=== PATIENT | male | born 1940 | race Caucasian/White ===

== ENCOUNTER 2017-09-13 06:47 | Day surgery (SDC) | payer MEDICARE, BC ==
[~2017-09-13] VITALS: Ht 177.8 cm; Wt 120.8 kg
[~2017-09-13 06:47] MED LIST: AMLO5 PO; ASPI81CH PO; Allopurinol100 MG PO; Bystolic20 MG PO; CELE200 PO; CLON.2 PO; COLCRYS0.6 MG PO; EDARBYCLOR 40-1 EAC1 PO; Nitrostat0.4 MG; POTA10T PO; Prozac20 MG PO; Simvastatin20 MG PO; TORSE20 PO
[2017-12-26] MEDS ORDERED: ACET500 PO (11:03)
[2017-12-26] MEDS ORDERED: VITAMIN B122500 MC1 PO (11:16)
[2017-12-26] MEDS ORDERED: TORSE20 PO (11:39)
[2017-12-26] MEDS ORDERED: Klor-Con 1010 MEQ PO (11:39)
[2017-12-26] MEDS ORDERED: Prozac40 MG PO (11:40)
[2017-12-26] MEDS ORDERED: TAMS.4ER PO (11:40)
[2017-12-26] MEDS ORDERED: ASPI81CH PO (11:41)
[2017-12-26] MEDS ORDERED: FLAX PO (11:41)
[2017-12-26] MEDS ORDERED: FISH OIL 1,2001 EAC1 PO (11:41)
[2017-12-26] MEDS ORDERED: NEBI10 PO (11:41)
[2017-12-26] MEDS ORDERED: EDARBYCLOR 40-1 EAC1 PO (11:42)
[2017-12-26] MEDS ORDERED: Hair, Skin & N1 EACH PO (11:43)
[2017-12-26] MEDS ORDERED: CALCA400CH PO (11:43)
[2017-12-26] MEDS ORDERED: COLCRYS0.6 MG PO ×2 (11:44)
[2017-12-26] MEDS ORDERED: SIMV5 PO (11:44)
[2017-12-26] MEDS ORDERED: AMLO5 PO (11:44)
[2017-12-26] MEDS ORDERED: Nitrostat0.4 MG SL (11:45)
[2017-12-26] MEDS ORDERED: CELE200 PO (11:45)
[2017-12-26] MEDS ORDERED: ALLO100 PO (11:46)
[2017-12-26] MEDS ORDERED: CLON.2 PO (11:46)
== END 2017-09-13 10:24 | disposition home or self-care (01) ==
LOC: ORSCSDS 06:47
PROVIDERS: Urology
PROC: 0V508ZZ Destruction of Prostate, Via Natural or Artificial Opening Endoscopic (ICD-10-PCS; principal; 2017-09-13 08:30)
DX: N40.1 Benign prostatic hyperplasia with lower urinary tract symptoms (principal); E11.9 Type 2 diabetes mellitus without complications; I10 Essential (primary) hypertension; E78.5 Hyperlipidemia, unspecified; G47.33 Obstructive sleep apnea (adult) (pediatric); I25.10 Atherosclerotic heart disease of native coronary artery without angina pectoris; Z95.1 Presence of aortocoronary bypass graft; E66.01 Morbid (severe) obesity due to excess calories; Z68.38 Body mass index [BMI] 38.0-38.9, adult; Z87.891 Personal history of nicotine dependence; Z79.899 Other long term (current) drug therapy
CPT/HCPCS: 82947; J0744; J1100; J2250; J2405; J3010; J7120

== ENCOUNTER 2018-01-16 07:32 | Inpatient (IN) | payer MEDICARE, BC ==
[~2018-01-16] VITALS: Ht 180.3 cm; Wt 122.9 kg
[~2018-01-16 07:32] MED LIST changes: +ACET500 PO; +ALLO100 PO; +CALCA400CH PO; +FISH OIL 1,2001 EAC1 PO; +FLAX PO; +Hair, Skin & N1 EACH PO; +Klor-Con 1010 MEQ PO; +NEBI10 PO; +Nitrostat0.4 MG SL; +Prozac40 MG PO; +SIMV5 PO; +TAMS.4ER PO; +VITAMIN B122500 MC1 PO
[2018-01-17 04:07] LABS: BASOPHILS ABSOLUTE AUTO 0.01 K/mm3 (0.00-0.23); BASOPHILS PERCENT AUTO 0 % (0-2); EOSINOPHILS PERCENT AUTO 0 % (0-6); Hemoglobin 10.5 g/dL (13.5-17.5); IMMATURE GRAN ABSOLUTE AUTO 0.06 K/mm3 (0.00-0.10); IMMATURE GRAN PERCENT AUTO 0 % (0-1); LYMPHOCYTES ABSOLUTE AUTO 1.77 K/mm3 (0.84-5.20); LYMPHOCYTES PERCENT AUTO 12 % (21-46); MONOCYTES PERCENT AUTO 7 % (4-13); Mean Corpuscular HGB 31.9 pg (26.0-34.0); Mean Corpuscular HGB Conc 33.9 g/dL (31.5-36.5); Mean Corpuscular Volume 94 fL (80-100); Mean Platelet Volume 9.8 fL (9.1-12.4); NEUTROPHILS ABSOLUTE AUTO 11.38 K/mm3 (1.96-9.15); NEUTROPHILS PERCENT AUTO 80 % (41-73); Platelet Count 194 K/mm3 (150-400); RDW Coefficient Variation 13.7 % (11.7-14.2); RDW Standard Deviation 47.5 fL (35.1-46.3); Red Blood Cell Count 3.29 M/mm3 (4.30-5.90); White Blood Cell Count 14.22 K/mm3 (4.00-11.30)
[2018-01-17 04:29] LABS: Magnesium, Blood 1.9 mg/dL (1.6-2.4)
[2018-01-17 04:30] LABS: Anion Gap 8 mmol/L (6-16); Blood Urea Nitrogen 29 mg/dL (8-24); Bun/Creatinine Ratio 29.6 (12.0-20.0); CO2, Blood 25 mmol/L (21-32); Calcium, Blood 8.3 mg/dL (8.5-10.1); Chloride, Blood 107 mmol/L (98-108); Creatinine, Blood 0.98 mg/dL (0.60-1.20); Glomerular Filtration Rate >60 (60-); Glucose, Blood 142 mg/dL (70-99); Potassium, Blood 3.6 mmol/L (3.5-5.5); Sodium, Blood 140 mmol/L (136-145)
[2018-01-17] MEDS ORDERED: Percocet 5-3251 EACH PO (11:44)
== END 2018-01-17 12:20 | disposition home or self-care (01) | DRG 483 ==
LOC: ORSCMMR 07:32 → SURS 09:46 → ORSCMMR 09:46 → SURS 01-17 12:20
PROVIDERS: Orthopaedic Surgery
PROC: 0RRJ0J6 Replacement of Right Shoulder Joint with Synthetic Substitute, Humeral Surface, Open Approach (ICD-10-PCS; principal; 2018-01-16 10:00)
DX: M19.011 Primary osteoarthritis, right shoulder (principal); I25.10 Atherosclerotic heart disease of native coronary artery without angina pectoris; E78.5 Hyperlipidemia, unspecified; E11.9 Type 2 diabetes mellitus without complications; F32.9 Major depressive disorder, single episode, unspecified; I77.819 Aortic ectasia, unspecified site; G47.33 Obstructive sleep apnea (adult) (pediatric); I10 Essential (primary) hypertension; E66.9 Obesity, unspecified; Z68.37 Body mass index [BMI] 37.0-37.9, adult; Z79.82 Long term (current) use of aspirin; Z79.899 Other long term (current) drug therapy; Z95.1 Presence of aortocoronary bypass graft; Z87.891 Personal history of nicotine dependence
CPT/HCPCS: 36415; 73030; 80048; 82947; 83735; 85025; 86850; 86900; 86901; 88300; 94762; 97110; 97116; 97161; 97166; 97535; C1776; G8978; G8979; G8980; G8987; G8988; G8989; J0171; J0690; J0735; J1100; J1885; J2370; J2405; J2795; J3370; J7030; J7120

== ENCOUNTER 2023-01-13 10:38 | Inpatient (IN) | payer MEDICARE, BC ==
[2023-01-13] VITALS (19 sets, daily range): BP systolic 96–167; BP diastolic 51–98
[~2023-01-13] VITALS: Ht 180.3 cm; Wt 122.5 kg
[~2023-01-13 10:38] MED LIST changes: +Percocet 5-3251 EACH PO
[2023-01-13 11:36] LABS: BASOPHILS ABSOLUTE AUTO 0.02 K/mm3 (0.00-0.23); BASOPHILS PERCENT AUTO 0 % (0-2); EOSINOPHILS ABSOLUTE AUTO 0.06 K/mm3 (0.00-0.68); EOSINOPHILS PERCENT AUTO 1 % (0-6); Hematocrit 19.9 % (37.0-53.0); IMMATURE GRAN ABSOLUTE AUTO 0.03 K/mm3 (0.00-0.10); IMMATURE GRAN PERCENT AUTO 0 % (0-1); LYMPHOCYTES ABSOLUTE AUTO 1.16 K/mm3 (0.84-5.20); LYMPHOCYTES PERCENT AUTO 16 % (21-46); MONOCYTES ABSOLUTE AUTO 1.01 K/mm3 (0.16-1.47); MONOCYTES PERCENT AUTO 14 % (4-13); Mean Corpuscular HGB 23.8 pg (26.0-34.0); Mean Corpuscular HGB Conc 28.6 g/dL (31.5-36.5); Mean Corpuscular Volume 83 fL (80-100); Mean Platelet Volume 10.8 fL (9.1-12.4); NEUTROPHILS ABSOLUTE AUTO 5.08 K/mm3 (1.96-9.15); NEUTROPHILS PERCENT AUTO 69 % (41-73); NRBC ABSOLUTE 0.02 K/mm3 (0.00-0.02); NRBC Auto 0.3 /100 WBC (0.0-0.2); Platelet Count 176 K/mm3 (150-400); White Blood Cell Count 7.36 K/mm3 (4.00-11.30)
[2023-01-13 11:50] LABS: Albumin, Blood 3.3 g/dL (3.4-5.0); Albumin/Globulin Ratio 1.1 (0.8-1.8); Bilirubin, Total 0.9 mg/dL (0.1-1.0); Bun/Creatinine Ratio 20.7 (12.0-20.0); Creatinine, Blood 1.11 mg/dL (0.60-1.20); Potassium, Blood 2.9 mmol/L (3.5-5.5); Total Protein, Blood 6.3 g/dL (6.4-8.2)
[2023-01-13 12:26] LABS: Hemoglobin 5.7 g/dL (13.5-17.5)
[2023-01-13 13:03] LABS: Source, Urine Foley catheter
[2023-01-13 13:07] LABS: Bilirubin, Urine Neg (Neg); Blood, Urine Neg (Neg); Glucose Qualitative, Urine Neg (Neg); Ketones, Urine Neg (Neg); Leukocyte Esterase, Urine Neg (Neg); Nitrite, Urine Neg (Neg); Protein, Urine Neg (Neg); Specific Gravity, Urine 1.005 (1.003-1.022); Urobilinogen, Urine NORM (Normal)
[2023-01-13 13:19] LABS: Appearance, Urine Clear (Clear); Color, Urine Pale Yellow (P-Yellow)
[2023-01-13] MEDS ORDERED: METF500 PO (13:23)
[2023-01-13] MEDS ORDERED: ELIQUIS5 M2 PO (13:23)
[2023-01-13] MEDS ORDERED: SPIR25 PO (13:24)
[2023-01-13] MEDS ORDERED: ESCI20 PO (13:25)
[2023-01-13] MEDS ORDERED: ALLO100 PO (13:25)
[2023-01-13] MEDS ORDERED: NEBI10 PO (13:25)
[2023-01-13] MEDS ORDERED: TORSE20 PO (13:25)
[2023-01-13] MEDS ORDERED: EDARBI40 MG PO (13:25)
[2023-01-13] MEDS ORDERED: ZOCOR20 MG PO (13:26)
[2023-01-13] MEDS ORDERED: ASPI81CH PO (13:26)
[2023-01-13] MEDS ORDERED: AMLO5 PO (13:26)
[2023-01-13 13:36] LABS: International Normalized Ratio 1.24; Prothrombin Time Results 12.9 Sec (9.7-11.5)
--- NOTE | 2023-01-13 15:30 | NUR ---
Received report from ER and patient came by jesus on monitor and infusing Blood product, Potassium, Magnesium. He has 22ga IV and 20ga IV in right hand. he is on Ra and sats >90% on RA. will bring CPAP in tomorrow and notified RT to bring CPAP and the set up in room . 16 Fr Robles draining clear urine. He is alert and oriented and is able to communicate all his needs. He was able to stand and self transfer to PCU 8 bed. Patient is in A-Fib in the 60's. is at bedside and was able to give Dr Ramirez info at bedside for H&P as well.
[2023-01-13 15:46] LABS: Percent Saturation 3.9 % (20.0-50.0)
--- NOTE | 2023-01-13 18:46 | NUR ---
Patient is alert and oriented and is able to communicate his needs , called and talked to him for the evening check in. H eis very pleasant with care. He is on RA and sats >90%. 2 PRBC infusing, and Potassium is done. Admit finished. He has 16Fr Robles draining to gravity and has drained a total of 3800 ml clear yellow urine. We are starting on clear liquid no reds.
[2023-01-13 21:24] LABS: Hematocrit 23.2 % (37.0-53.0); Hemoglobin 7.1 g/dL (13.5-17.5)
[2023-01-14 04:36] VITALS: BP 136/69
[2023-01-14 05:46] LABS: Hematocrit 23.2 % (37.0-53.0); Mean Corpuscular HGB 24.4 pg (26.0-34.0); Mean Corpuscular HGB Conc 30.2 g/dL (31.5-36.5); Mean Corpuscular Volume 81 fL (80-100); Mean Platelet Volume 10.6 fL (9.1-12.4); Platelet Count 159 K/mm3 (150-400); RDW Coefficient Variation 17.5 % (11.7-14.2); RDW Standard Deviation 51.8 fL (35.1-46.3); Red Blood Cell Count 2.87 M/mm3 (4.30-5.90)
--- NOTE | 2023-01-14 05:53 | NUR ---
END OF SHIFT PT CONFUSED OVERNIGHT REQUIRING THE BED ALARM FOR SAFETY, PULLING AT F/C AT TIMES, OTHERWISE VSS, GOOD UO, NO BM SO STILL NEEDING A SPECIMEN FOR OCCULT STOOL ORDER, HGB POST 2 UNITS PRBC'S WAS 7.1, LABS PENDING THIS AM
[2023-01-14 05:55] LABS: Bun/Creatinine Ratio 18.4 (12.0-20.0); Creatinine, Blood 1.03 mg/dL (0.60-1.20)
[2023-01-14 06:51] VITALS: BP 147/80
--- NOTE | 2023-01-14 07:23 | NUR ---
Recieved report from Noc shift RN. Patient is awakened easily with verbal stimuli. He is appropriate and is able to communbicate his needs. He has 2 IV's to right hand and PICC line to RAMONA. Plan for GI consult today. He has 16 Fr pablo draining to gravity clear yellow urine. He is on RA and sats >90%. He uses CPAP at night to sleep and will bring his in today. MAEW and is independent with positioning. VSS
--- NOTE | 2023-01-14 11:30 | NUR ---
Patient awake in bed watching TV. He trolerated am meds with water. He is anxiously awaiting GI cunsult. Started [address] well[address] Kim was in with patient, no new orders. Patient continues to have copius amount of clear urine (2 Liters). will be coming in at noon his personal CPAP. He remains on RA and sats >90%. ECHO just finished.
--- NOTE | 2023-01-14 11:36 | NUR ---
Patient is awake and caregiver in room , Dr Live and resident is room with them. We changed to full face mask for BIPAP and patient likes better. He tolerated some food this am and orange juice and well as po meds. He is currently on NC 5L O2 and sats 97%. Oral care done pre and post eating. His speech slightly better to understand. Eduar palmer'd
[2023-01-14 12:19] VITALS: BP 138/69
[2023-01-14 15:00] VITALS: BP 118/68
--- NOTE | 2023-01-14 17:25 | NUR ---
Patient has been doing well and resting off and on. He is anxious about GI consult, but arrived about 1600. Spouse at bedside. Dr Kelly by and did rectal exam and spoke with patient and spouse and made reccomendations to Hosp.. Patient is impulsive at times and redirects quickly. He is independent in bed and SBA when up for safety. He finished 3rd PRBC and tolerated well. Heemains on RA and sats >90%. Called Dr Kim for new diet and meds.
[2023-01-14 20:28] VITALS: BP 111/74
--- NOTE | 2023-01-15 05:28 | NUR ---
END OF SHIFT ATTEMPTS AT BLADDER TRAINING UNSUCCESSFUL OVERNIGHT D/T PT CONFUSION, F/C CLAMPED FOR 1 HOUR AND LEAKING AROUND CATHETER, PT UP OUT OF BED DRAGGING CATHETER ON FLOOR, LINENS CHANGED AND CATHETER LEFT IN PLACE UNTIL AM, OTHERWISE NO ISSUES OR CHANGES FROM PREVIOUS STATUS, LABS PENDING THIS AM
[2023-01-15 06:05] LABS: Hematocrit 25.4 % (37.0-53.0); Hemoglobin 7.8 g/dL (13.5-17.5); Mean Corpuscular HGB 24.7 pg (26.0-34.0); Mean Corpuscular HGB Conc 30.7 g/dL (31.5-36.5); Mean Corpuscular Volume 80 fL (80-100); Mean Platelet Volume 10.7 fL (9.1-12.4); Platelet Count 155 K/mm3 (150-400); RDW Coefficient Variation 17.5 % (11.7-14.2); RDW Standard Deviation 51.7 fL (35.1-46.3); Red Blood Cell Count 3.16 M/mm3 (4.30-5.90)
[2023-01-15 06:26] LABS: Albumin, Blood 3.1 g/dL (3.4-5.0); Anion Gap 5 mmol/L (6-16); Blood Urea Nitrogen 13 mg/dL (8-24); Bun/Creatinine Ratio 13.6 (12.0-20.0); CO2, Blood 28 mmol/L (21-32); Calcium, Blood 8.2 mg/dL (8.5-10.1); Chloride, Blood 111 mmol/L (98-108); Creatinine, Blood 0.96 mg/dL (0.60-1.20); Glomerular Filtration Rate 78 (60-); Glucose, Blood 111 mg/dL (70-99); Phosphorus, Blood 3.2 mg/dL (2.5-4.9); Potassium, Blood 2.6 mmol/L (3.5-5.5); Sodium, Blood 144 mmol/L (136-145)
[2023-01-15 08:00] VITALS: BP 146/51
[2023-01-15 09:18] LABS: Stool Occult Bld Immuno 1 Positive (NEGATIVE)
[2023-01-15 09:20] VITALS: BP 118/61
[2023-01-15 12:36] VITALS: BP 113/58
[2023-01-15] MEDS ORDERED: FERSU300 PO (14:55)
[2023-01-15] MEDS ORDERED: MIRALAX17 GM PO (14:59)
[2023-01-15] MEDS ORDERED: POTA10T PO (14:59)
[2023-01-15] MEDS ORDERED: LOSARTAN POTAS100 M1 PO (15:00)
[2023-01-15 16:00] VITALS: BP 103/48
--- NOTE | 2023-01-15 16:33 | NUR ---
SHIFT SUMMARY THIS RN ASSUMED CARE OF PT AT 0715, REPORT FROM NETTE BACH. PT AWAKE IN ROOM, WATCHING TV. PT A&O X 3-4. PT RESPONDING TO QUESTIONS APPROPRIATELY; PT HARD OF HEARING BUT OTHER THAN THAT HE IS INTERACTING AND RESPONDING APPROPRIATELY. VSS THROUGHOUT SHIFT. PT'S KELLER CATHETER DC'D THIS AM; THIS RN REMOVED KELLER AND SINCE THEN PT HAS BEEN USING URINAL AT BEDSIDE W/ASSISTANCE. PT HAS SOME EPISODES OF INCONTINENCE; ATTENDS IN PLACE AND CHANGED NEEDED. NO BM THIS SHIFT, HOWEVER PT DENIES BLOOD IN STOOL, DENIES DARK STOOLS. STATES STOOLS ARE "SOFT, SMALL AND SMOOTH, BROWN IN COLOR". PT DENIES N/V. DENIES CP OR PRESSURE, DENIES SOB. PT REMAINS ON RA W/NO DIFFICULTIES. PT ABLE TO MOVE TO AND TRANSFER W/SBA/MINIMAL ASSISTANCE. PT UP TO BEDSIDE RECLINER THIS AFTERNOON AND IS STILL IN CHAIR. NO EDEMA IN BLE. PT RECIEVED POTASSIUM CHLORIDE 20 MEQ X 3 BAGS PER EMAR. PT ALSO RECEIVED IRON INFUSION PER EMAR. PT TOLERATED INFUSION WELL. ORDERS FOR DISCHARGE THIS EVENING. PT'S AT BEDSIDE AND WILL UPDATE. PT HAD A SHOWER THIS AFTERNOON.
[2023-01-15] MEDS ORDERED: LOSA25 PO (17:30)
--- NOTE | 2023-01-15 18:20 | NUR ---
DISCHARGE NOTE DISCHARGE INSTRUCTIONS AND EDUCATION PROVIDED. PT AND EDUCATED AND GIVEN DISCHARGE PACKET. PT STABLE. PICC LINE REMOVED. PT BELONGINGS PACKED AND SENT WITH PT. PT WAITING FOR PICC LINE SITE TO RECOVER PER PROTOCOL, THEN PT WILL LEAVE WITH .
== END 2023-01-15 18:29 | disposition home or self-care (01) | DRG 811 ==
LOC: ER 10:38 → PCU 13:23
PROVIDERS: Internal Medicine; Student in an Organized Health Care Education/Training Program; ADMIT Internal Medicine
PROC: 02HV33Z Insertion of Infusion Device into Superior Vena Cava, Percutaneous Approach (ICD-10-PCS; principal; 2023-01-13)
PROC: 30233N1 Transfusion of Nonautologous Red Blood Cells into Peripheral Vein, Percutaneous Approach (ICD-10-PCS; 2023-01-13)
PROC: 30233N1 Transfusion of Nonautologous Red Blood Cells into Peripheral Vein, Percutaneous Approach (ICD-10-PCS; 2023-01-13)
DX: D50.9 Iron deficiency anemia, unspecified (principal); I50.33 Acute on chronic diastolic (congestive) heart failure; I48.20 Chronic atrial fibrillation, unspecified; I11.0 Hypertensive heart disease with heart failure; E87.0 Hyperosmolality and hypernatremia; G47.33 Obstructive sleep apnea (adult) (pediatric); I25.10 Atherosclerotic heart disease of native coronary artery without angina pectoris; E11.9 Type 2 diabetes mellitus without complications; E78.5 Hyperlipidemia, unspecified; E66.01 Morbid (severe) obesity due to excess calories; I27.20 Pulmonary hypertension, unspecified; M10.9 Gout, unspecified; E87.6 Hypokalemia; Z68.37 Body mass index [BMI] 37.0-37.9, adult; Z99.89 Dependence on other enabling machines and devices; Z98.890 Other specified postprocedural states; Z87.891 Personal history of nicotine dependence; Z95.1 Presence of aortocoronary bypass graft; Z79.01 Long term (current) use of anticoagulants; Z79.82 Long term (current) use of aspirin; Z79.84 Long term (current) use of oral hypoglycemic drugs; Z79.899 Other long term (current) drug therapy
CPT/HCPCS: 36430; 51702; 71045; 71046; 80048; 80053; 80069; 81003; 82274; 82607; 82728; 82746; 82947; 83540; 83550; 83735; 83880; 84484; 85014; 85018; 85025; 85027; 85610; 85730; 86850; 86900; 86901; 86923; 93005; 93010; 93306; 94660; 94762; 96374-59; 96375-59; 99285-25; A9270; J1750; J1940; J3475; J3480; J7030; J7040; J7050; P9016

== ENCOUNTER 2023-06-15 05:45 | Day surgery (SDC) | payer MEDICARE, BC ==
[~2023-06-15] VITALS: Ht 175.3 cm; Wt 115.9 kg
[~2023-06-15 05:45] MED LIST changes: +Diflucan100 MG PO; +EDARBI40 MG PO; +ELIQUIS5 M2 PO; +ERGO400 PO; +ESCI20 PO; +FERSU300 PO; +Flonase 0.05% N16 GM; +LOSA25 PO; +LOSARTAN POTAS100 M1 PO; +METF500 PO; +MIRALAX17 GM PO; +NITR.4SL SL; +OMEGA-3 + VITA200 ML PO; +PRED5 PO; +PROAIR RESPICL90 MCG IH; +SPIR25 PO; +TURMERIC500 M2 PO; +VITAMIN B-122000 MC1 PO; +VITAMIN K240 MCG PO; +ZOCOR20 MG PO
[2023-06-15 06:40] VITALS: BP 164/84
--- NOTE | 2023-06-15 07:10 | NUR ---
W/C inTO Day Surgery. Pre-Op teaching done. Pt verbalizes understanding. History, Chart, Medications and Allergies reviewed before start of procedure.Patient confirms NPO status and agrees with scheduled surgery. Patient States Post-Procedure ride home has been arranged.
--- NOTE | 2023-06-15 07:30 | NUR ---
06/15/23 0730 Dorita Delgadillo History, Chart, Medications and Allergies reviewed before start of procedure.MONITOR INTACT WITH CONTINUOUS PULSE OXIMETRY, CONTINUOUS END TITAL CO2, AND INTERMITTENT BLOOD PRESSURE.3-LEAD EKG REVIEWED WITH PHYSICIAN PRIOR TO START OF PROCEDURE.O2 VIA N/C INTACT THROUGHOUT SEDATION/PROCEDURE.Bite Block Placed.MAC PER DR. ARIZMENDI.
[2023-06-15 08:35] VITALS: BP 112/70
[2023-06-15 08:52] VITALS: BP 119/63
--- NOTE | 2023-06-15 09:12 | NUR ---
Discharge instructions reviewed with patient. Patient verbalizes understanding. Copy given to patient to take home. Discharged via wheelchair to private car for ride home.
== END 2023-06-15 09:08 | disposition home or self-care (01) ==
LOC: ORSCMMR 05:45 → ORD 07:30 → ORSCMMR 09:08
PROVIDERS: Surgery
PROC: 0DB48ZX Excision of Esophagogastric Junction, Via Natural or Artificial Opening Endoscopic, Diagnostic (ICD-10-PCS; principal; 2023-06-15 07:30)
PROC: 0DB78ZX Excision of Stomach, Pylorus, Via Natural or Artificial Opening Endoscopic, Diagnostic (ICD-10-PCS; principal; 2023-06-15 07:30)
PROC: 0DBM8ZX Excision of Descending Colon, Via Natural or Artificial Opening Endoscopic, Diagnostic (ICD-10-PCS; principal; 2023-06-15 07:30)
DX: D50.9 Iron deficiency anemia, unspecified (principal); Z86.010 Personal history of colon polyps; D12.4 Benign neoplasm of descending colon; K22.70 Barrett's esophagus without dysplasia; K21.9 Gastro-esophageal reflux disease without esophagitis; K57.30 Diverticulosis of large intestine without perforation or abscess without bleeding; G47.33 Obstructive sleep apnea (adult) (pediatric); I10 Essential (primary) hypertension; E11.9 Type 2 diabetes mellitus without complications; E03.9 Hypothyroidism, unspecified; I48.91 Unspecified atrial fibrillation; Z79.01 Long term (current) use of anticoagulants; I25.10 Atherosclerotic heart disease of native coronary artery without angina pectoris; J44.9 Chronic obstructive pulmonary disease, unspecified; Z87.891 Personal history of nicotine dependence; F32.A Depression, unspecified; Z79.899 Other long term (current) drug therapy; Z79.82 Long term (current) use of aspirin; Z79.84 Long term (current) use of oral hypoglycemic drugs
CPT/HCPCS: 82947; 88305; 88342; J2001; J2704; J7120

== ENCOUNTER → 2023-10-01 | Outpatient (CLI) | payer MEDICARE, BC ==
[2023-10-01 16:52] LABS: BASOPHILS ABSOLUTE AUTO 0.02 K/mm3 (0.00-0.23); BASOPHILS PERCENT AUTO 0 % (0-2); EOSINOPHILS ABSOLUTE AUTO 0.14 K/mm3 (0.00-0.68); EOSINOPHILS PERCENT AUTO 2 % (0-6); Hematocrit 27.5 % (37.0-53.0); Hemoglobin 8.5 g/dL (13.5-17.5); IMMATURE GRAN ABSOLUTE AUTO 0.02 K/mm3 (0.00-0.10); IMMATURE GRAN PERCENT AUTO 0 % (0-1); LYMPHOCYTES ABSOLUTE AUTO 1.81 K/mm3 (0.84-5.20); LYMPHOCYTES PERCENT AUTO 25 % (21-46); MONOCYTES ABSOLUTE AUTO 0.68 K/mm3 (0.16-1.47); MONOCYTES PERCENT AUTO 9 % (4-13); Mean Corpuscular HGB 30.9 pg (26.0-34.0); Mean Corpuscular HGB Conc 30.9 g/dL (31.5-36.5); Mean Corpuscular Volume 100 fL (80-100); Mean Platelet Volume 9.2 fL (9.1-12.4); NEUTROPHILS ABSOLUTE AUTO 4.58 K/mm3 (1.96-9.15); NEUTROPHILS PERCENT AUTO 63 % (41-73); Platelet Count 199 K/mm3 (150-400); RDW Coefficient Variation 13.4 % (11.7-14.2); RDW Standard Deviation 48.7 fL (35.1-46.3); Red Blood Cell Count 2.75 M/mm3 (4.30-5.90); White Blood Cell Count 7.25 K/mm3 (4.00-11.30)
[2023-10-01 17:07] LABS: Albumin, Blood 3.6 g/dL (3.4-5.0); Albumin/Globulin Ratio 1.1 (0.8-1.8); Bilirubin, Total 0.7 mg/dL (0.1-1.0); Bun/Creatinine Ratio 24.1 (12.0-20.0); Calcium, Blood 9.1 mg/dL (8.5-10.1); Creatinine, Blood 1.08 mg/dL (0.60-1.20); Globulin, Blood 3.2 g/dL (2.2-4.0); Potassium, Blood 3.7 mmol/L (3.5-5.5); Total Protein, Blood 6.8 g/dL (6.4-8.2)
== END ==
LOC: LAB 16:23 → LAB SHORT 16:23
PROVIDERS: Family Medicine
DX: R06.00 Dyspnea, unspecified (principal)
CPT/HCPCS: 80053; 83880; 84484; 85025

== ENCOUNTER 2023-11-01 06:39 | Day surgery (SDC) | payer MEDICARE, BC ==
[~2023-11-01] VITALS: Ht 177.8 cm; Wt 111.0 kg
[2023-11-01] VITALS (10 sets, daily range): BP systolic 117–166; BP diastolic 46–93
[~2023-11-01 06:39] MED LIST changes: +JARDIANCE10 MG PO
[2023-11-01] MEDS ORDERED: Verapamil HCL 2.5 MG/ML 2ML Injection ONE (07:42)
[2023-11-01] MEDS ORDERED: NS 250 ML IV ONE (07:43)
[2023-11-01] MEDS ORDERED: NS 1,000 ML IV ONE ×2 (07:43→08:03)
[2023-11-01] MEDS ORDERED: Heparin Sodium 1000 Units/ML 10ML MDV ONE (07:43)
[2023-11-01] MEDS ORDERED: FentaNYL Citrate 50 MCG/ML 2 ML Injection ONE (08:03)
--- NOTE | 2023-11-01 10:45 | NUR ---
10CC AIR REMOVED FROM R WRIST TR BAND. NEG BLEEDING OR SWELLING. PT UP TO THE BATHROOM /C SBA. TOLERATED WELL.
--- NOTE | 2023-11-01 12:00 | NUR ---
L WRIST TR BAND REMOVED AND CLOTH DOT DRSG PLACED. L WRIST SPLINT AND SLING APPLIED. PT AND VERBALIZED UNDERSTANDING OF WRITTEN AND VERBAL D/C INST. IV REMOVED.
== END 2023-11-01 12:30 | disposition home or self-care (01) ==
LOC: MHTC 06:39
PROC: B2121ZZ Fluoroscopy of Single Coronary Artery Bypass Graft using Low Osmolar Contrast (ICD-10-PCS; principal; 2023-11-01)
DX: I25.708 Atherosclerosis of coronary artery bypass graft(s), unspecified, with other forms of angina pectoris (principal); Z79.01 Long term (current) use of anticoagulants; Z79.82 Long term (current) use of aspirin; Z79.84 Long term (current) use of oral hypoglycemic drugs; Z79.899 Other long term (current) drug therapy
CPT/HCPCS: 76937; 93454; 99152; 99153; C1769; C1894; J1644; J3010; J7030; J7050

== ENCOUNTER 2025-08-27 10:58 | Emergency (ER) | payer OTHER, MEDICARE, BC ==
[~2025-08-27] VITALS: Ht 175.3 cm; Wt 86.2 kg
[2025-08-27 12:40] LABS: BASOPHILS ABSOLUTE AUTO 0.02 K/mm3 (0.00-0.23); BASOPHILS PERCENT AUTO 0 % (0-2); EOSINOPHILS ABSOLUTE AUTO 0.11 K/mm3 (0.00-0.68); EOSINOPHILS PERCENT AUTO 2 % (0-6); Hematocrit 34.0 % (37.0-53.0); Hemoglobin 11.8 g/dL (13.5-17.5); IMMATURE GRAN ABSOLUTE AUTO 0.01 K/mm3 (0.00-0.10); IMMATURE GRAN PERCENT AUTO 0 % (0-1); LYMPHOCYTES ABSOLUTE AUTO 1.65 K/mm3 (0.84-5.20); LYMPHOCYTES PERCENT AUTO 22 % (21-46); MONOCYTES ABSOLUTE AUTO 0.88 K/mm3 (0.16-1.47); MONOCYTES PERCENT AUTO 12 % (4-13); Mean Corpuscular HGB Conc 34.7 g/dL (31.5-36.5); Mean Corpuscular Volume 104 fL (80-100); NEUTROPHILS ABSOLUTE AUTO 4.81 K/mm3 (1.96-9.15); NEUTROPHILS PERCENT AUTO 64 % (41-73); NRBC ABSOLUTE 0.00 K/mm3 (0.00-0.02); NRBC Auto 0.0 /100 WBC (0.0-0.2); Platelet Count 221 K/mm3 (150-400); RDW Coefficient Variation 13.0 % (11.7-14.2); RDW Standard Deviation 49.1 fL (35.1-46.3)
[2025-08-27 13:12] LABS: Alanine Aminotransfer (ALT/SGP 16.0 U/L (12-78); Albumin, Blood 3.4 g/dL (3.4-5.0); Albumin/Globulin Ratio 1.0 (0.8-1.8); Anion Gap 9.0 mmol/L (3-11); Aspartate Aminotrans (AST/SGOT 19.0 U/L (12-37); Bilirubin, Total 0.8 mg/dL (0.1-1.0); Blood Urea Nitrogen 34.0 mg/dL (8-24); CO2, Blood 24.0 mmol/L (21-32); Calcium, Blood 9.1 mg/dL (8.5-10.1); Chloride, Blood 107.0 mmol/L (98-108); Creatinine, Blood 1.18 mg/dL (0.60-1.20); Globulin, Blood 3.5 g/dL (2.2-4.0); Glucose, Blood 102.0 mg/dL (70-99); Potassium, Blood 3.9 mmol/L (3.5-5.5); Sodium, Blood 136.0 mmol/L (136-145); Total Protein, Blood 6.9 g/dL (6.4-8.2)
[2025-08-27] MEDS ORDERED: Lidocaine 4% 1 Patch TOP ONE (16:45)
[2025-08-27] MEDS ORDERED: HYDROcodone 5-APAP 325 TAB PO ONE (16:45)
[2025-08-27] MEDS ORDERED: Voltaren100 GM TOP (16:47)
[2025-08-27] MEDS ORDERED: LIDO700A20 TOP (16:47)
[2025-08-27] MEDS ORDERED: CYCL10 PO (16:47)
[2025-08-27 17:52] VITALS: BP 141/80
== END 2025-08-27 18:07 | disposition home or self-care (01) ==
LOC: ER 10:58
PROVIDERS: Emergency Medicine
DX: M25.552 Pain in left hip (principal); D64.9 Anemia, unspecified; Z79.01 Long term (current) use of anticoagulants; Z87.891 Personal history of nicotine dependence; Z79.82 Long term (current) use of aspirin; Z79.84 Long term (current) use of oral hypoglycemic drugs; Z79.899 Other long term (current) drug therapy; Z88.8 Allergy status to other drugs, medicaments and biological substances; W01.0XXA Fall on same level from slipping, tripping and stumbling without subsequent striking against object, initial encounter
CPT/HCPCS: 36415; 70450; 73502; 80053; 85025; 99284-25; A9270